=== PATIENT | female | born 1955 | race Caucasian/White ===

== ENCOUNTER 2023-08-21 06:24 | Observation (INO) ==
--- NOTE | 2023-07-09 15:16 | PAT Medication Instructions ---
Medication Instructions Date of Service July 09, 2023 Home Medications Medication Instructions Recorded nebulizers #1 ea 11/25/18 ipratropium 0.5 mg-albuterol 3 mg 3 ml inhalation Q6H PRN shortness 11/29/19 (2.5 mg base)/3 mL nebulization of breath or wheezing #360 mL soln budesonide-formoterol HFA 160 2 puff inhalation BID #3 Inhalers 10/02/22 mcg-4.5 mcg/actuation aerosol inhaler (Symbicort) simvastatin 20 mg tablet 20 mg PO QPM #90 tabs 12/18/22 levothyroxine 112 mcg tablet 112 mcg PO QAM #90 tabs 12/29/22 ipratropium 0.5 mg-albuterol 3 mg (2.5 mg base)/3 mL nebulization soln 3 ml inhalation Q6H PRN shortness of breath or wheezing budesonide-formoterol HFA 160 mcg-4.5 mcg/actuation aerosol inhaler (Symbicort) 2 puff inhalation BID simvastatin 20 mg tablet 20 mg PO QPM levothyroxine 112 mcg tablet 112 mcg PO QAM albuterol sulfate 90 mcg/actuation aerosol inhaler (ProAir HFA) 2 puff inhalation UD PRN shortness of breath or wheezing Take morning of surgery With a small sip of water, OTHERWISE NOTHING TO EAT OR DRINK AFTER MIDNIGHT: ipratropium 0.5 mg-albuterol 3 mg (2.5 mg base)/3 mL nebulization soln 3 ml inhalation Q6H PRN shortness of breath or wheezing (if needed) budesonide-formoterol HFA 160 mcg-4.5 mcg/actuation aerosol inhaler (Symbicort) 2 puff inhalation BID levothyroxine 112 mcg tablet 112 mcg PO QAM albuterol sulfate 90 mcg/actuation aerosol inhaler (ProAir HFA) 2 puff inhalation UD PRN shortness of breath or wheezing (use if needed; please bring with you to hospital day of surgery if possible) Take evening before surgery ipratropium 0.5 mg-albuterol 3 mg (2.5 mg base)/3 mL nebulization soln 3 ml inhalation Q6H PRN shortness of breath or wheezing (if needed) budesonide-formoterol HFA 160 mcg-4.5 mcg/actuation aerosol inhaler (Symbicort) 2 puff inhalation BID simvastatin 20 mg tablet 20 mg PO QPM albuterol sulfate 90 mcg/actuation aerosol inhaler (ProAir HFA) 2 puff inhalation UD PRN shortness of breath or wheezing (if needed) Other Notes If you have any questions please call us at [phone] or [phone] or [phone] or [phone]
--- NOTE | 2023-07-24 12:11 | Anesthesiology Consultation ---
Date of Service July 24, 2023 Assessment & Plan (1) Encounter for pre-operative examination: Plan - pulmonology office visit 07/24/23 MN: "...Asthma-COPD overlap syndrome: Symptoms stable on Symbicort. We discussed the use of albuterol as she is currently using it about 3 times a day. It seems that her dyspnea is more related to deconditioning and asthma. We discussed that albuterol should be reserved for more asthma-like symptoms which include wheezing, coughing and shortness of breath. Return to clinic in 6 months with a PFT. She is a low risk for perioperative complications related to a total knee replacement at this time and there is no absolute contraindication to proceed with surgery from a pulmonary perspective. Would recommend frequent pulmonary toileting with incentive spirometry postoperatively. Chronic dyspnea: Multifactorial from obesity, asthma and deconditioning. Weight loss advised. Patient unfortunately did not complete pulmonary rehab due to conflict with her work schedule..." - Outpatient joint assessment: Patient is currently scheduled for inpatient pathway. If re-evaluated and patient/surgeon requests outpatient pathway, patient is not ideal candidate for outpatient joint program from anesthesia standpoint. Chart Review Chart Review: Acceptable Risk for Surgery and Patient seen in Pre Admission Testing Teaching & Discussion Pre-Anesthesia Teaching/Discussion Notes: Instructed NPO after midnight before surgery, except medications with 15 cc of water. Medication instructions provided according to the PAT guidelines. History Surgery Operation Date: 08/21/23 08:00 Proposed Procedures p Right Total Knee Arthroplasty - Kam Flores, DO Height/Weight Height: 5 ft 6 in Weight: 99.7 kg Allergies Allergy/AdvReac Type Severity Reaction Status Date / Time No Known Drug Allergies Allergy Unknown Verified 07/15/23 14:09 Medications Home Medications Medication Instructions Recorded Confirmed Last Taken nebulizers #1 ea 11/25/18 07/15/23 Unknown ipratropium 0.5 mg-albuterol 3 mg 3 ml inhalation Q6H PRN shortness 11/29/19 07/15/23 Unknown (2.5 mg base)/3 mL nebulization of breath or wheezing #360 mL soln simvastatin 20 mg tablet 20 mg PO QPM #90 tabs 12/18/22 07/15/23 Unknown levothyroxine 112 mcg tablet 112 mcg PO QAM #90 tabs 12/29/22 07/15/23 Unknown albuterol sulfate 90 mcg/actuation 2 puff inhalation UD PRN shortness 07/24/23 07/24/23 Unknown aerosol inhaler (ProAir HFA) of breath or wheezing #8.5 grams budesonide-formoterol HFA 160 2 puff inhalation BID #3 Inhalers 07/24/23 07/24/23 Unknown mcg-4.5 mcg/actuation aerosol inhaler (Symbicort) Past Medical History Medical History Anxiety no meds Asthma-chronic obstructive pulmonary disease overlap syndrome daily inh and prn inh (uses every day) and nebulizer prn; f/u dr. loo, pulm Chronic dyspnea w/exertion only Chronic pain of right hip Chronic sialoadenitis happens off and on-denies currently GERD (gastroesophageal reflux disease) [id number] prn History of Nair's palsy 2008 > felt was caused by extreme cold temp in winter History of hypertension no current meds; in 2021 had to be given medication prior to and after colonoscopy at [facility] History of uterine cancer diagnosed 2005--sx only Hyperlipidemia Hypothyroidism Osteoarthritis Pulmonary nodule monitoring Patient denies h/o stroke, seizures, heart attack, heart failure, DM, blood clots/DVTs or blood transfusions. Exercise / Class Metabolic Activity III < 4 Walking/Shop/Light housework (chronic shortness of breath with usual activities ongoing for several years-denies change or worsening; denies chest discomfort) Past Family History Family History Son Hypertension Mother Hypertension Sister Myocardial infarction Lung cancer Grandmother Breast cancer Father Bladder cancer Other No family history of adverse response to anesthesia Denies family history of Ovarian cancer Prostate cancer Colorectal cancer Uterine cancer Past Surgical History Surgical History History of colonoscopy History of dilatation and curettage History of tooth extraction all upper teeth/most of bottom History of total hysterectomy with bilateral salpingo-oophorectomy (BSO) History of wisdom tooth extraction S/P section x2 S/P tonsillectomy Past Anesthesia History No Hx of Anesthesia Complications and No Family Hx of Anesthesia Complications History of PONV No Hx of PONV and Hx of Motion Sickness Social History Smoking Status: Former smoker Smoking cigarettes per day: 30-40 Do You Dip or Chew Tobacco: No Smoking End Date: ~1999 Hx Alcohol Use: Yes (no longer drinks, only occasional use) Alcohol type: wine alcohol intake frequency: holidays/special occasions only Hx Substance Use: No substance use type: does not use Review of Systems Snoring, denies witnessed apneas. Patient denies chest pain, fever, chills, wheezing, or palpitations. Physical Exam Vital Signs Vitals BP 122/81 P 73 TEMP 98.1 SP02 97% on RA RESP 18 Physical Patient resting comfortably in chair in no acute distress, alert and oriented, responding appropriately throughout visit Full cervical extension range of motion without pain TMD < 3 finger breadths Mallampati Score 2 Dentition: full upper denture, denies chipped or loose teeth, caps/crowns, implants or bridges Lungs: normal respiratory effort. Good air movement, clear throughout to auscultation, no adventitious breath sounds Cardiac: regular rate and rhythm, no murmurs noted Carotid arteries: negative bruit bilat Lab Results Anesthesia Preop Results Results Anesthesia Widget: WBC 6.44 K/ul (4.8-10.8) 07/24/23 Hgb 12.8 g/dl (12.0-16.0) 07/24/23 Hct 38.9 % (37.0-47.0) 07/24/23 Plt 223 K/uL (130-400) 07/24/23 Na 142 mmol/L (136-145) 07/24/23 K 3.7 mmol/L (3.5-5.1) 07/24/23 Cl 109 mmol/L (98-107) H 07/24/23 CO2 26 mmol/L (21-32) 07/24/23 BUN 14 mg/dl (6-23) 07/24/23 Creat 0.83 mg/dl (0.6-1.2) 07/24/23 Glucose Level 93 mg/dl (70-99(Fasting)) 07/24/23 PT 10.6 Seconds (9.0-12.0) 07/24/23 PTT 25 Seconds (21-31) 07/24/23 INR 1.0 (0.9-1.1) 07/24/23 Blood Type A Positive 07/24/23 Antibody Screen NEGATIVE 07/24/23 Testing Electrocardiogram Date: 07/24/23 NSR, rate 66 bpm Chest X-Ray Date: 07/24/23 No acute chest disease.
--- NOTE | 2023-08-19 12:39 | History & Physical Report ---
Date of Service August 19, 2023 Assessment & Plan (1) Osteoarthritis of right knee: We will proceed with a right total knee arthroplasty. Postoperatively she will be started on aspirin for DVT prophylaxis and kept overnight in the hospital for postop medical management. She plans to use energy physical therapy upon discharge. History of Present Illness Chief Complaint: Osteoarthritis right knee. Primary Care Provider: Krystyna Burnette MD Meme is a pleasant 67-year-old female who is well known to me. She has been dealing with chronic increasing right knee pain. X-rays and clinical examination have been diagnostic for advanced patellofemoral arthritis of the right knee. After failing extensive conservative treatment, she has elected proceed with a right total knee arthroplasty. Allergies Allergy/AdvReac Type Severity Reaction Status Date / Time No Known Drug Allergies Allergy Unknown Verified 07/15/23 14:09 Home Medications Medication Instructions Recorded Confirmed Type nebulizers #1 ea 11/25/18 07/15/23 Rx ipratropium 0.5 mg-albuterol 3 mg 3 ml inhalation Q6H PRN shortness 11/29/19 07/15/23 Rx (2.5 mg base)/3 mL nebulization of breath or wheezing #360 mL soln simvastatin 20 mg tablet 20 mg PO QPM #90 tabs 12/18/22 07/15/23 Rx levothyroxine 112 mcg tablet 112 mcg PO QAM #90 tabs 12/29/22 07/15/23 Rx albuterol sulfate 90 mcg/actuation 2 puff inhalation UD PRN shortness 07/24/23 07/24/23 Rx aerosol inhaler (ProAir HFA) of breath or wheezing #8.5 grams budesonide-formoterol HFA 160 2 puff inhalation BID #3 Inhalers 07/24/23 07/24/23 Rx mcg-4.5 mcg/actuation aerosol inhaler (Symbicort) Past Med/Surg History Problem List (Updated 08/19/23 @ 12:39 by Kam Flores DO) Osteoarthritis of right knee Osteoarthritis of knees, bilateral De Quervain's tenosynovitis CMC arthritis Obesity (BMI 30.0-34.9) Asthma-COPD overlap syndrome Chronic dyspnea Severe persistent asthma Pulmonary nodule seen on imaging study History of tobacco use Osteoarthritis of right hip Greater trochanteric bursitis of right hip Hypothyroidism Chronic pain of right hip Arthritis (Chronic) Chronic sialoadenitis (Chronic) Hyperlipidemia (Chronic) Benign essential hypertension (Chronic) Medical History GERD (gastroesophageal reflux disease) [id number] prn Pulmonary nodule monitoring Hypothyroidism Hyperlipidemia Chronic pain of right hip Chronic sialoadenitis happens off and on-denies currently Chronic dyspnea w/exertion only History of hypertension no current meds; in 2021 had to be given medication prior to and after colonoscopy at [facility] Asthma-chronic obstructive pulmonary disease overlap syndrome daily inh and prn inh (uses every day) and nebulizer prn; f/u dr. loo, pulm Osteoarthritis History of uterine cancer diagnosed 2005--sx only Anxiety no meds History of Nair's palsy 2008 > felt was caused by extreme cold temp in winter Surgical History History of dilatation and curettage History of colonoscopy History of total hysterectomy with bilateral salpingo-oophorectomy (BSO) History of tooth extraction all upper teeth/most of bottom History of wisdom tooth extraction S/P tonsillectomy S/P section x2 Family History Son Hypertension Mother Hypertension Sister Myocardial infarction Lung cancer Grandmother Breast cancer Father Bladder cancer Other No family history of adverse response to anesthesia Denies family history of Ovarian cancer Prostate cancer Colorectal cancer Uterine cancer Social History Smoking Status: Former smoker Tobacco Type: Cigarettes Age Started Using Tobacco: 19; Age Quit Using Tobacco: 43; packs per day: 1.5; Cigarettes Per Day: 30-40; Second Hand Exposure: Yes (hx); Do You Dip or Chew Tobacco: No; Hx Alcohol Use: Yes (no longer drinks, only occasional use) Alcohol type: wine Hx Substance Use: No Preferred Language: Swedish Communication Ability: Effective Visual Impairment: No Limitations Hearing Ability: Normal First Line Supervisor Required: No Beliefs That Will Affect Care: None marital status: Current Living Situation: Spouse and Family current occupational status: employed current occupation: works with [employer] Feels Safe at Home: Yes Childhood Exposure to Second-Hand Smoke: Yes Diet: regular Dental Care, Regularly: No Physical Activity Frequency: Daily Seatbelt Use: always Sunscreen Use: No Assistive Devices: Denture - Upper, Glasses and Nebulizer Review of Systems All systems reviewed & are unremarkable except as noted in HPI & below. Physical Exam On physical examination of the right knee, she has full range of motion 0 to 120 degrees. She has crepitus in the patellofemoral joint and pain underneath the patella. Constitutional WD/WN, vitals as above Eyes PERRL, conjunctivae normal, anicteric sclerae ENMT external ear and nose normal, oropharynx normal Neck trachea midline, no thyromegaly Respiratory normal respiratory effort Cardiovascular RRR, no murmur, no edema Gastrointestinal (Abdomen) normal bowel sounds, soft, nontender, no hepatosplenomegaly Psychiatric A+Ox3, euthymic affect Results & Data Results & Data Laboratory Results . Diagnostic Findings X-rays of the right knee show severe patellofemoral arthritis. There is joint space narrowing osteophyte formation.. . PG Care Time/CCT Total # of Minutes Spent Total Time Spent with Patient: Total time spent is greater than 50% in coordination of care (as documented) at patient's floor/unit and/or counseling patient: Coding Level of Care Code None Diagnoses Osteoarthritis of right knee M17.11
[2023-08-21] MEDS ORDERED: BUPIVACAINE 0.5 % 5 MG/1 ML PF 10ML VIAL ONE (06:30)
[2023-08-21] MEDS ORDERED: ROPIVACAINE 0.5% 5 MG/ML 30 ML VIAL ONE (06:30)
--- NOTE | 2023-08-21 06:32 | History & Physical Bridge Note ---
Date of Service August 21, 2023 History & Physical Bridge Note I have examined the patient, reviewed the History & Physical and in the interval since the performance of the History & Physical I have noted the following changes of clinical significance: no changes noted
[2023-08-21] MEDS ORDERED: PROPOFOL IV EMULSION 10 MG/ML 20 ML VIAL IV ONE (06:36)
[2023-08-21] MEDS ORDERED: MIDAZOLAM HCL 1 MG/ML 2ML VIAL ONE ×2 (06:36→07:52)
[2023-08-21] MEDS ORDERED: fentaNYL citrate PF 100 MCG/2 ML VIAL ONE (06:36)
[2023-08-21] MEDS: LR 60ML/HR IV SCH (07:08)
[2023-08-21] MEDS: LR 500ML BOLUS, THEN 15ML/HR IV SCH (07:08)
[2023-08-21] MEDS: FAMOTIDINE 20 MG TAB PO SCH (07:22)
[2023-08-21] MEDS: GABAPENTIN 300 MG CAP PO SCH (07:22)
[2023-08-21] MEDS: ACETAMINOPHEN 500 MG TAB PO SCH ×2 (07:22→14:37)
[2023-08-21] MEDS ORDERED: ATROPINE SULFATE 0.1 MG/ML 10ML SYR IV PRN (07:23)
[2023-08-21] MEDS: dexAMETHasone**PF** 10 MG/ML VIAL IV SCH (07:23)
[2023-08-21] MEDS ORDERED: fentaNYL citrate PF 100 MCG/2 ML VIAL IV PRN (07:23)
[2023-08-21] MEDS ORDERED: ONDANSETRON INJ 2 MG/ML 2 ML VIAL IV PRN ×2 (07:23→12:19)
[2023-08-21] MEDS ORDERED: ePHEDrine sulfate 50 MG/ML AMP IV PRN (07:23)
[2023-08-21] MEDS: TRANEXAMIC ACID 1,000 MG **IV Pre-op IV SCH (07:47)
[2023-08-21] MEDS: ceFAZolin 2000MG 2,000 MG/15 ML SYR IV SCH ×2 (08:01→16:38)
[2023-08-21] MEDS: ROPIV 0.5% 246mg, Ketorolac 30mg, EPINEPHrine 0.5mg in NSS INFIL SCH (08:29)
[2023-08-21] MEDS ORDERED: ONDANSETRON INJ 2 MG/ML 2 ML VIAL ONE (08:48)
[2023-08-21] MEDS ORDERED: PHENYLEPHRINE 100MCG/ML 10ML SYR IV ONE (09:01)
[2023-08-21] MEDS: TRANEXAMIC ACID 1,000 MG **IV Intra-op IV SCH (09:05)
--- NOTE | 2023-08-21 09:12 | Operative Report ---
PG Post Operative Report Pre & Post Diagnosis Operation Date: 08/21/23 08:00 Pre-Op Diagnosis: Degenerative Joint Disease Right Knee Post-Op Diagnosis: Degenerative Joint Disease Right Knee I identified the patient and participated in the time-out.: Yes Procedure Operation Date: 08/21/23 08:00 Actual Procedures p Right Total Knee Arthroplasty(Right) - Kam Flores DO Surgeon Kam Flores DO Weight Yardage Checker Kam Garsia PA-C Estimated Blood Loss 30 Findings Consistent with Post-Op Diagnosis Specimens Right femoral and tibial bone Description of Procedure Implants used: I used a Lm Persona total knee arthroplasty system with a size 9 standard femur, E tibia, 28 oval patella, and a size 10 medial congruent polyethylene bearing. All components were cemented in place with Biomet cement. Meme arrived [facility] for the above procedure. She was seen in the preoperative holding area and the operative extremity was identified and signed. She was given a preoperative antibiotic, TXA, a spinal anesthetic and an adductor nerve block. She was taken back to the operating room and laid on the table in supine position. She was given basic sedation. The operative knee was then prepped and draped in sterile fashion. A timeout was done, and the patient and the operative extremity was properly identified. A midline incision was made directly over the patella. Dissection was taken down to the extensor mechanism. A subvastus arthrotomy was used. The medial retinaculum was released and the fat pad was mostly excised. The knee was flexed and the ACL, PCL, and meniscus were removed. A drill was sent down the center of the femoral canal followed by an intramedullary nilo. Off that nilo a distal femoral cutting block was placed. 9 mm was resected off the distal femur at 5 of valgus. A posterior referencing AP sizing guide was then placed on the distal femur. The femur measured to be a size 9. 2 drill holes were placed in 3 of external rotation. A 4-in-1 cutting block was then impacted into place. Anterior, posterior, and chamfer cuts were then made. The proximal tibia was then exposed. An external tibial alignment guide was placed. A tibial cut guide was then anchored in place and the proximal tibia was then resected. The posterior aspect of the knee was then opened up and any additional meniscus fragments and osteophytes were removed. The tibia measured to be a size E. The tibial plate was then placed in the appropriate rotation and the tibia was drilled and punched. Trial components were then placed. I used a size 10 medial congruent polyethylene insert. The knee was brought through a full range of motion and felt to be stable. The peg holes for the femoral component were then drilled. The patella was then everted and 9 mm was resected off the posterior aspect of the patella. The patella measured to be a size 28 oval. 3 peg holes were then drilled. A trial patella was placed. The knee was once again brought through a full range of motion and felt to be stable. Trial components were then removed. The surrounding soft tissues were injected with 100 cc of an orthopedic pain control cocktail. All components were then cemented into place with Biomet cement. The final polyethylene insert was then snapped into place. Once cement was dry the tourniquet was deflated. Hemostasis was obtained. A dilute betadyne lavage was then done for 3 minutes. The joint was then irrigated with normal saline solution. The subvastus art hrotomy was then closed with #1 Vicryl suture. The skin was closed with 2-0 Vicryl, 3-0V lock suture, and zachary. A soft compressive dressing was placed. She was then transferred to a hospital bed and taken to the postanesthesia care unit in stable condition. She tolerated the procedure well. Kam Garsia PA-C, was present for the entire procedure. He was critical for patient positioning, prepping, draping, retraction exposure, wound closure and application of sterile dressing. I attest to the content of the Intraoperative Record and any orders documented therein. Any exceptions are noted below.
--- NOTE | 2023-08-21 10:22 | XRay Report ---
RIGHT KNEE 2 VIEWS History: Right total knee arthroplasty. Degenerative arthritis. Postop. FINDINGS: The patient is status post a right total knee arthroplasty. The hardware is intact. No frac ture or dislocation. Skin zachary are in place. IMPRESSION: Right total knee arthroplasty. No evidence for hardware complication. ACT 112: Negative or not required by law. Electronically signed by: Antonio Yousif M.D. 08/21/2023 10:21 AM
--- NOTE | 2023-08-21 11:51 | Anesthesiology Progress Note ---
Date of Service August 21, 2023 Anesthesia Post Procedure Vital Signs Vital Signs: Temp Pulse Pulse Resp BP Pulse Ox O2 Del Method 08/21/23 11:40 76 19 137/66 94 Room Air 08/21/23 11:30 98.1 F 60 12 124/81 97 Room Air 08/21/23 11:20 62 18 112/70 98 Room Air 08/21/23 11:10 62 18 124/59 L 98 Oxymask 08/21/23 11:00 63 16 123/70 99 Oxymask 08/21/23 10:50 53 L 14 118/73 100 Oxymask 08/21/23 10:40 98.1 F 52 L 12 117/74 100 Oxymask 08/21/23 10:30 52 L 13 124/75 100 Oxymask 08/21/23 10:20 58 L 12 122/72 100 Oxymask 08/21/23 10:10 57 L 16 133/86 100 Oxymask 08/21/23 10:00 59 L 18 123/82 97 Oxymask 08/21/23 09:50 68 22 106/68 98 Oxymask 08/21/23 09:40 65 23 112/68 96 Oxymask 08/21/23 09:32 97.9 F 72 22 110/72 97 Oxymask 08/21/23 07:01 98.4 F 67 18 159/103 H 97 Room Air O2 Flow Rate 08/21/23 11:40 08/21/23 11:30 08/21/23 11:20 08/21/23 11:10 2 08/21/23 11:00 2 08/21/23 10:50 2 08/21/23 10:40 2 08/21/23 10:30 4 08/21/23 10:20 4 08/21/23 10:10 4 08/21/23 10:00 4 08/21/23 09:50 4 08/21/23 09:40 4 08/21/23 09:32 4 08/21/23 07:01 Transfer of Care Handoff Completed per policy Notes Mental Status: alert / awake / arousable and participated in evaluation Patient Amnestic to Procedure: Yes Nausea / Vomiting: adequately controlled Pain: adequately controlled Airway Patency, RR, SpO2: stable & adequate BP & HR: stable & adequate Hydration State: stable & adequate Neuraxial Anesthesia: was administered and sensory block is resolving Anesthetic Complications: no major complications apparent and Pt Satisfied with anesthetic care
[2023-08-21] MEDS ORDERED: MAGNESIUM HYDROXIDE SUSP 30 ML UDC PO PRN (12:19)
[2023-08-21] MEDS ORDERED: ALBUTEROL HFA 8 GM INHALER INH PRN (12:19)
[2023-08-21] MEDS ORDERED: NALOXONE HCL 0.4 MG/1 ML VIAL/CARP IV PRN (12:19)
[2023-08-21] MEDS ORDERED: bisacodyL 10 MG SUPP PR PRN (12:19)
[2023-08-21] MEDS ORDERED: HYDROmorphone INJ 0.5 MG/0.5 ML SYR IV PRN (12:19)
[2023-08-21] MEDS ORDERED: METOCLOPRAMIDE HCL INJ 5 MG/ML 2 ML VIAL IV PRN (12:19)
[2023-08-21] MEDS ORDERED: ALBUT/IPRATROP 3MG/0.5MG NEB 3 ML VIAL INH PRN (12:19)
[2023-08-21] MEDS: ORTHO JOINT ANESTHETIC ONE (12:45)
[2023-08-21] MEDS: SODIUM CHLORIDE 0.9% 1,000 ML IV SCH (12:46)
[2023-08-21] MEDS: KETOROLAC TROMETHAMINE 15 MG/ML VIAL IV SCH (14:37)
[2023-08-21] MEDS: DOCUSATE SODIUM 100 MG CAP PO SCH (21:20)
[2023-08-21] MEDS: SENNA 8.6 MG TAB PO SCH (21:21)
[2023-08-21] MEDS: ASPIRIN 81 MG ECTAB PO SCH (21:21)
[2023-08-21] MEDS: SIMVASTATIN 20 MG TAB PO SCH (21:22)
[2023-08-22] MEDS: LEVOTHYROXINE SODIUM 112 MCG TABLET PO SCH (06:03)
--- NOTE | 2023-08-22 07:28 | Orthopedic Progress Note ---
Date of Service August 22, 2023 Assessment & Plan (1) Status post right knee replacement: Overall she doing well. She is not having much pain in the right knee. She will be seen by physical therapy today for ambulation and range of motion exercises. She is on aspirin for DVT prophylaxis. The nursing staff can change the dressing after physical therapy. She can be discharged home later today. She will follow-up with orthopedics in 2 weeks.. Vinicio Valentine was seen and examined at bedside this morning. Overall she is doing very well. She is not having too much pain in the right knee. She has been up and ambulating to the bathroom. She has no complaints.. Review of Systems All systems reviewed & are unremarkable except as noted in HPI & below. Physical Exam On physical examination of the right knee, the dressing is clean and dry. Her leg is out full extension. She has active dorsiflexion plantarflexion of her right ankle.. Results & Data Results & Data Laboratory Results . Diagnostic Findings Postoperative x-rays of the right knee show the prosthesis to be in anatomic alignment without any evidence of fracture complication, or loosening. PG Care Time/CCT Total # of Minutes Spent Total Time Spent with Patient: Total time spent is greater than 50% in coordination of care (as documented) at patient's floor/unit and/or counseling patient: Coding Level of Care Code 75449 Post Operative Follow-Up Diagnoses Status post right knee replacement Z96.651
--- NOTE | 2023-08-22 07:29 | Discharge Summary ---
Date of Service August 22, 2023 Admission HPI (Per Admitting) Meme is a pleasant 67-year-old female who is well known to me. She has been dealing with chronic increasing right knee pain. X-rays and clinical examination have been diagnostic for advanced patellofemoral arthritis of the right knee. After failing extensive conservative treatment, she has elected proceed with a right total knee arthroplasty. Admission Exam (Per Admitting) On physical examination of the right knee, she has full range of motion 0 to 120 degrees. She has crepitus in the patellofemoral joint and pain underneath the patella. Principal Diagnosis Same as "Discharge Diagnosis" noted below under Discharge Instructions. Discharge Exam On physical examination of the right knee, the dressing is clean and dry. Her leg is out full extension. She has active dorsiflexion plantarflexion of her right ankle.. Discharge Data Procedures Performed Operation Date: 08/21/23 08:00 Actual Procedures p Right Total Knee Arthroplasty(Right) - Kam Flores DO Ordered Studies 08/21/23 05:00 US - OR guided needle placemen Routine Hospital Course (1) Status post right knee replacement: On August 21, [address] [facility] and underwent a right knee replacement without complication. She had a spinal anesthetic. Postoperatively she was started on aspirin for DVT prophylaxis and transferred to the general orthopedic floors. Her hospital course was uneventful. On postop day #1, her vital signs were stable and her pain was well-controlled. She was able to participate well with physical therapy doing ambulation and range of motion exercises. She was then discharged home. She will follow-up with orthopedics in 2 weeks. PG Care Time/CCT Total # of Minutes Spent Total Time Spent with Patient: Total time spent is greater than 50% in coordination of care (as documented) at patient's floor/unit and/or counseling patient: Discharge Plan Discharge Items Patient Disposition: Home - Self-Care Reason For Visit: Degenerative Joint Disease Right Knee Discharge Diagnosis: Right knee replacement Activity: As commented below Non-emergency contact: Surgeon Call non-emergency contact if: your wound has increased redness and your wound has increased drainage Follow-up/Referrals: Krystyna Burnette MD [Primary Care Provider] - Diet: Regular Addtl Attending Provider Instructions: Activity and Therapy Recommendations: * If you are using [facility] then therapy will be provided at your home until they feel you have accomplished all of your goals. * If you are using [facility] then Physical Therapy will be provided until they feel you are ready to start Outpatient Physical Therapy. * If you are not using home therapy then Outpatient Physical Therapy should start about 3-5 days from your day of surgery. Therapy will last about 6-10 weeks * It is important not to put a pillow under your knee when you are relaxing or sleeping. It is just as important to make sure you are getting your knee perfectly straight as it is to regain your knee bend. * You were shown a series of exercises in the hospital. Do these exercises three times each day including the exercises you were shown in physical therapy. * Get up and walk several times each day. For the first four weeks, try not to stand or walk for more than one hour at a time. If you do stand or walk for more than one hour, you will not hurt anything, but your leg will likely swell. * As you feel comfortable, you may change from the walker or crutches to a cane and then to independent walking. Medications: * Narcotic You will likely be sent home from the hospital with a prescription for the narcotic pain medication that worked best throughout your stay. * Cefadroxil -take the antibiotic twice a day for 10 days to help prevent infection. * Aspirin Most patients will be required to take Aspirin 81mg twice a day for 6 weeks after surgery. This is obtained [id number] and a prescription is not necessary. * Other medications may be prescribed for specific circumstances. If you have any questions, please call the office at . * Resume previous home medications unless otherwise instructed TEDs/Elastic Stockings: The white elastic stockings help limit swelling and prevent blood clots from forming in your legs.~ The more you wear them, the more they work. Wear them for six weeks. Dressing Care: The dressing can be changed after physical therapy on postop day #1. Daily dry dressing changes for a few days, especially if the incision is still draining some. If the incision is not draining then you may leave the zachary open to air. If there is a little bit of drainage or if the zachary are getting stuck on your clothing then cover the incision with a dry dressing. The zachary will be removed at your 2 week follow-up appointment. Showering: You may shower 5 days from the day of surgery as long as the incision is no longer draining. You may shower with the zachary exposed. Let soapy water run over the zachary and pat them dry. Do not scrub or soak the incision. Things To Watch For: * Drainage from the incision site that occurs more than one week after your surgery. * Increased redness at the incision site. * Fever above 102 degrees Fahrenheit. * Unusual chest pain or shortness of breath. * Call [facility] at with any of the above problems Follow-Up Visit: Follow-up with Dr. Flores's PA (Kam Garsia) 2-3 weeks after your day of surgery. He will remove your zachary and answer any questions. If you have any additional questions or concerns, Dr Flores is usually in the office at the same time and will be available An appointment was probably scheduled when you signed-up for surgery in the office. If you have any questions call Office Instructions: More detailed instructions as well as Frequently Asked Questions were provided in a folder by our office when you signed-up for surgery. Please review these instructions when you get home. If you have any further questions or concerns, please feel free to call the office at [phone] Pending Studies at Discharge: No Stand-Alone Forms: My [facility], Smoking Cessation Medications and DC Order Prescriptions: New oxycodone 5 mg Tablet 5 mg PO Q4H PRN (Reason: pain) Qty: 30 0RF cefadroxil 500 mg capsule 500 mg PO BID 10 Days Qty: 20 0RF aspirin 81 mg Tablet,Delayed Release (Dr/Ec) 81 mg PO BID 42 Days Qty: 0 0RF Continued ipratropium-albuterol 0.5 mg-3 mg(2.5 mg base)/3 mL solution for nebulization 3 ml inhalation Q6H PRN (Reason: shortness of breath or wheezing) Qty: 360 2RF simvastatin 20 mg tablet 20 mg PO QPM Qty: 90 3RF levothyroxine 112 mcg tablet 112 mcg PO QAM Qty: 90 3RF (DME) nebulizers misc See Dose Instructions [id number] .MEDSUPPLY Qty: 1 0RF Dose Instruction: As directed Rx Instructions: As directed budesonide-formoterol [Symbicort] 160-4.5 mcg/actuation HFA aerosol inhaler 2 puff inhalation BID Qty: 3 3RF albuterol sulfate [ProAir HFA] 90 mcg/actuation HFA aerosol inhaler 2 puff INH UD PRN (Reason: shortness of breath or wheezing) Qty: 8.5 3RF Rx Instructions: 2 puff inhalation q4-6 hrs PRN; Discharge Orders: Discharge Order (Routine); Ordered 08/22/23 Ordered By: Kam Flores Admission Data Admit Date/Time: 08/21/23 09:33 Attending Provider: Kam Flores Admit Provider: Kam Flores Primary Care Provider: Krystyna Burnette
[2023-08-22] MEDS: dexAMETHasone 4 MG TAB PO SCH (08:13)
[2023-08-22] MEDS: FLUTICASONE/VILANTEROL 200/25MCG 14 PUFFS/INHALER INH SCH (08:14)
[2023-08-22] MEDS: MULTIVITAMIN TAB PO SCH (08:14)
[2023-08-22] MEDS: oxyCODONE HCL IR 5 MG TAB (IMMEDIATE RELEASE) PO PRN (09:38)
== END 2023-08-22 11:20 | disposition home or self-care (01) ==
LOC: ASU 06:24 → 3E 06:24